=== PATIENT | female | born 1975 | race Two or more races ===

== ENCOUNTER 2018-12-11 08:00 | Inpatient (IN) | payer OTHER ==
[2018-12-11] MEDS: SOD CHLORIDE 0.9% 1,000 ML IV (07:00)
[2018-12-11] MEDS: CEFAZOLIN 2 GM/50 ML (PMX) 50 ML IVPB (07:00)
[~2018-12-11 08:00] MED LIST: DESFLURANE 15 MIN; GLYCOPYRROLATE 0.4 MG INJ; LIDOCAINE 2% (SDV) 5 ML INJ; SUCCINYLCHOLINE CHLORIDE 100 MG/5 ML SYG IV
[2018-12-11] MEDS ORDERED: PROPOFOL 40 ML (08:19)
[2018-12-11] MEDS ORDERED: FAMOTIDINE 20 MG INJ (08:20)
[2018-12-11] MEDS ORDERED: MIDAZOLAM 1 MG/ML 2 ML INJ (08:20)
[2018-12-11] MEDS ORDERED: ROCURONIUM 50 MG INJ (08:20)
[2018-12-11] MEDS ORDERED: CEFAZOLIN 1 GM INJ (08:20)
[2018-12-11] MEDS ORDERED: ONDANSETRON 4 MG INJ (08:20)
[2018-12-11] MEDS ORDERED: FENTAnyl 50 MCG/ML VIAL (08:20)
[2018-12-11] MEDS ORDERED: ONDANSETRON 4 MG INJ IV ×2 (08:30→12:00)
[2018-12-11] MEDS ORDERED: HYDROmorphONE 1 MG/5 ML IV SYRINGE IV ×3 (08:30)
[2018-12-11] MEDS ORDERED: ALBUTEROL 0.083% (NEB) 2.5 MG/3 ML AMP HHN (08:30)
[2018-12-11] MEDS ORDERED: morphine (1 MG/ML) 10ML SYRINGE IV ×2 (08:30)
[2018-12-11] MEDS ORDERED: DIPHENHYDRAMINE 50 MG INJ IV (08:30)
[2018-12-11] MEDS ORDERED: FENTAnyl 50 MCG/ML VIAL IV ×2 (08:30)
[2018-12-11] MEDS ORDERED: MEPERIDINE 25 MG INJ IV (08:30)
[2018-12-11] MEDS ORDERED: LABETALOL HCL 20MG INJ IV (08:30)
[2018-12-11] MEDS ORDERED: OXYCODONE/ACETAMINOPHEN (5/325) TAB PO ×2 (08:30)
[2018-12-11] MEDS ORDERED: THROMBIN (BOVINE) 5,000 UNIT VIAL TP (09:11)
[2018-12-11] MEDS: ACETAMINOPHEN 500 MG TAB PO (09:14)
[2018-12-11] MEDS ORDERED: SURGIFOAM POWDER 1 GM KIT (09:18)
[2018-12-11] MEDS ORDERED: PHENYLephrine (100 MCG/ML) 10ML SYG (09:56)
[2018-12-11] MEDS ORDERED: KETAMINE (50 MG/ML) 10 ML VIAL (10:16)
[2018-12-11] MEDS ORDERED: DEXAMETHASONE 4 MG/ML 5 ML INJ (10:43)
[2018-12-11] MEDS: morphine 2 MG INJ IV (13:49)
[2018-12-11] MEDS: D5W-0.45 NACL + KCL 20 MEQ 1,000 ML IV ×2 (13:49→20:19)
[2018-12-11] MEDS: ACETAMINOPHEN 1000MG/100ML IV 100 ML IVPB (17:44)
[2018-12-11] MEDS ORDERED: HYDROCODONE/APAP (5/325) TAB PO (19:00)
[2018-12-11 19:34] LABS: CALCIUM 9.1 mg/dl (8.4-10.2)
[2018-12-12 01:16] LABS: CALCIUM 9.2 mg/dl (8.4-10.2)
[2018-12-12] MEDS: D5W-0.45 NACL + KCL 20 MEQ 1,000 ML IV (02:30)
[2018-12-12] MEDS: ACETAMINOPHEN 1000MG/100ML IV 100 ML IVPB (06:15)
[2018-12-12 09:17] LABS: CALCIUM 8.9 mg/dl (8.4-10.2)
[2018-12-12] MEDS ORDERED: ACETAMINOPHEN 500 MG TAB PO (17:30)
[2018-12-12] MEDS: ACETAMINOPHEN 500 MG TAB PO (17:49)
== END 2018-12-12 18:11 | disposition home or self-care (01) | DRG 627 ==
LOC: SDS 08:00 → REC 12:15 → MS1 13:22
PROVIDERS: Surgery Surgical Oncology
PROC: 0GBH0ZZ Excision of Right Thyroid Gland Lobe, Open Approach (ICD-10-PCS; principal; 2018-12-11 09:00)
DX: C73 Malignant neoplasm of thyroid gland (principal)
CPT/HCPCS: 82310; 84703; 88307; 88321; 88331